=== PATIENT | male | born 1970 | race African-American/Black ===

== ENCOUNTER 2018-04-17 19:43 | Emergency (ER) | payer BC, OTHER ==
[~2018-04-17] VITALS: Ht 170.2 cm; Wt 69.4 kg
[~2018-04-17 19:43] MED LIST: AC500T PO; BACL10TA PO; DCS100C PO; DICL50TA4 PO; ENAL20TA76 PO; ENLP10T PO; KCL20TCR PO; METO50TA7 PO; NF-SKEL800 PO; OXC5T PO; OXYC5CAP10 PO; TRIA1TAB PO; TRIA1TAB42 PO
[2018-04-17] MEDS ORDERED: morphine INJ 10 MG/ML 1ML (SYR OR VIAL) IVP ONE (20:30)
[2018-04-17] MEDS ORDERED: morphine INJ 10 MG/ML 1ML (SYR OR VIAL) ONE (20:32)
[2018-04-17 20:37] LABS: HEMOGLOBIN 14.7 G/DL (13.3-17.7); MEAN PLATELET VOLUME 8.5 FL (7.4-10.4); RED BLOOD COUNT 4.92 10^6/uL (4.35-5.85); RED CELL DISTRIBUTION WIDTH 12.5 % (10.0-14.5); WHITE BLOOD COUNT 9.5 10^3/uL (4.3-11.0)
[2018-04-17] MEDS ORDERED: HYDROmorphone 2 MG/ML VIAL (DILAUDID) IV STA ×2 (20:44→21:53)
[2018-04-17] MEDS ORDERED: ORPHENADRINE 60 MG/2 ML (NORFLEX) AMP IV ONE (20:45)
[2018-04-17 20:51] LABS: INR 1.1 (0.8-1.4); PROTHROMBIN TIME PATIENT 13.7 SEC (12.2-14.7)
[2018-04-17 20:58] LABS: ALANINE AMINOTRANSFERASE 21 U/L (0-55); ALBUMIN 4.5 GM/DL (3.2-4.5); ALKALINE PHOSPHATASE 95 U/L (40-136); BILIRUBIN,TOTAL 0.6 MG/DL (0.1-1.0); BUN/CREATININE RATIO 15; CALCIUM 9.2 MG/DL (8.5-10.1); CARBON DIOXIDE 20 MMOL/L (21-32); CHLORIDE 108 MMOL/L (98-107); CREATININE SERUM 1.12 MG/DL (0.60-1.30); GFR ESTIMATED > 60; GLUCOSE 103 MG/DL (70-105); POTASSIUM 3.8 MMOL/L (3.6-5.0); SODIUM 141 MMOL/L (135-145); TOTAL PROTEIN 7.1 GM/DL (6.4-8.2)
[2018-04-17] MEDS ORDERED: LORazepam INJ 2 MG/ML (ATIVAN) VIAL ONE (20:59)
[2018-04-17] MEDS ORDERED: LORazepam INJ 2 MG/ML (ATIVAN) VIAL IVP ONE ×2 (21:00→22:15)
--- NOTE | 2018-04-17 21:25 | Diagnostic Imaging Report ---
INDICATION: Fell, left arm pain. FINDINGS: There is a fracture through the mid shaft of the left humerus. This is displaced by almost the width of the shaft. On lateral imaging, there is approximately 60 degrees of angulation. IMPRESSION: There is displaced angulated fracture of the mid humeral shaft. Dictated by: Dictated on workstation # [id number]
--- NOTE | 2018-04-17 21:41 | Diagnostic Imaging Report ---
INDICATION: Patient fell, complaining of left arm pain. COMPARISON STUDY: None. The known humeral fracture is not included. FINDINGS: Frontal view of the chest demonstrates heart size to be upper normal with normal vascularity. The lungs are clear. No pleural effusion or pneumothorax is present. No fractures are seen. IMPRESSION: Normal chest. There is a known humeral fracture. Dictated by: Dictated on workstation # [id number]
[2018-04-17] MEDS ORDERED: RX-CYCLOBENZAPRINE 10 MG (FLEXERIL) TAB PPK#3 PO STA (21:53)
[2018-04-17] MEDS ORDERED: RX-OXYCODONE/APAP 5-325 MG #4 TAB PK PO PRN (22:00)
[2018-04-17] MEDS ORDERED: ETOMIDATE IV SOLN 20 MG/10 ML VIAL IV ONE (22:30)
[2018-04-18] MEDS ORDERED: HYDR-3812 PO (02:31)
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
[2018-04-18 03:22] VITALS: BP 133/82
--- NOTE | 2018-04-18 07:01 | Diagnostic Imaging Report ---
INDICATION: Left humerus fracture. IMPRESSION: AP view of the humerus labeled postreduction shows a transverse oblique fracture of the midshaft of left humerus with medial offset of the distal component by half width of the shaft. The distal component also appears to be rotated medially. Dictated by: Dictated on workstation # [id number]
== END 2018-04-18 03:22 | disposition home or self-care (01) ==
LOC: EDUNIT# 19:43 → ER 19:44
DX: S42.332A Displaced oblique fracture of shaft of humerus, left arm, initial encounter for closed fracture (principal); I10 Essential (primary) hypertension; G80.9 Cerebral palsy, unspecified; M62.830 Muscle spasm of back; W01.0XXA Fall on same level from slipping, tripping and stumbling without subsequent striking against object, initial encounter
CPT/HCPCS: 23605; 29105; 36415; 71045; 73060; 80053; 80320; 85027; 85610; 85730; 93041

== ENCOUNTER → 2018-04-30 | Outpatient (CLI) | payer BC ==
[~2018-04-30] MED LIST changes: +HYDR-3812 PO
[2018-04-30 14:47] LABS: BASOPHILS % (AUTO) 1 % (0-10); EOSINOPHILS # (AUTO) 0.2 10^3/uL (0.0-0.3); EOSINOPHILS % (AUTO) 3 % (0-10); HEMATOCRIT 40 % (40-54); LYMPHOCYTES # (AUTO) 1.4 X 10^3 (1.0-4.0); LYMPHOCYTES % (AUTO) 24 % (12-44); MEAN CORPUSCULAR HEMOGLOBIN 31 PG (25-34); MEAN CORPUSCULAR HGB CONC 35 G/DL (32-36); MEAN CORPUSCULAR VOLUME 88 FL (80-99); MEAN PLATELET VOLUME 8.5 FL (7.4-10.4); MONOCYTES # (AUTO) 0.4 X 10^3 (0.0-1.0); MONOCYTES % (AUTO) 8 % (0-12); NEUTROPHILS # (AUTO) 3.7 X 10^3 (1.8-7.8); NEUTROPHILS % (AUTO) 65 % (42-75); PLATELET COUNT 350 10^3/uL (130-400); RED BLOOD COUNT 4.59 10^6/uL (4.35-5.85); RED CELL DISTRIBUTION WIDTH 12.4 % (10.0-14.5); WHITE BLOOD COUNT 5.8 10^3/uL (4.3-11.0)
[2018-04-30 15:17] LABS: ALANINE AMINOTRANSFERASE 29 U/L (0-55); ALBUMIN 4.2 GM/DL (3.2-4.5); ALKALINE PHOSPHATASE 109 U/L (40-136); BILIRUBIN,TOTAL 0.6 MG/DL (0.1-1.0); BUN/CREATININE RATIO 15; CALCIUM 9.3 MG/DL (8.5-10.1); CARBON DIOXIDE 22 MMOL/L (21-32); CHLORIDE 108 MMOL/L (98-107); CREATININE SERUM 1.05 MG/DL (0.60-1.30); GFR ESTIMATED > 60; GLUCOSE 97 MG/DL (70-105); POTASSIUM 3.6 MMOL/L (3.6-5.0); SODIUM 141 MMOL/L (135-145); TOTAL PROTEIN 6.9 GM/DL (6.4-8.2)
== END ==
LOC: LAB 14:30
PROVIDERS: ATTEND Orthopaedic Surgery Orthopaedic Trauma
DX: I10 Essential (primary) hypertension (principal)
CPT/HCPCS: 36415; 80053; 85025

== ENCOUNTER 2018-07-20 17:50 | Emergency (ER) | payer BC ==
[~2018-07-20] VITALS: Ht 170.2 cm; Wt 69.6 kg
[2018-07-20] MEDS ORDERED: TETANUS,DIPTH,PERTUSS P/F (BOOSTRIX) 0.5 ML VIAL IM STA (17:58)
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
[2018-07-20 18:26] LABS: BASOPHILS % (AUTO) 0 % (0-10); EOSINOPHILS # (AUTO) 0.1 10^3/uL (0.0-0.3); EOSINOPHILS % (AUTO) 2 % (0-10); HEMATOCRIT 46 % (40-54); HEMOGLOBIN 15.6 G/DL (13.3-17.7); LYMPHOCYTES # (AUTO) 1.5 X 10^3 (1.0-4.0); LYMPHOCYTES % (AUTO) 20 % (12-44); MEAN CORPUSCULAR HEMOGLOBIN 31 PG (25-34); MEAN CORPUSCULAR HGB CONC 34 G/DL (32-36); MEAN CORPUSCULAR VOLUME 90 FL (80-99); MEAN PLATELET VOLUME 9.1 FL (7.4-10.4); MONOCYTES # (AUTO) 0.7 X 10^3 (0.0-1.0); MONOCYTES % (AUTO) 10 % (0-12); NEUTROPHILS # (AUTO) 4.9 X 10^3 (1.8-7.8); NEUTROPHILS % (AUTO) 68 % (42-75); PLATELET COUNT 331 10^3/uL (130-400); RED CELL DISTRIBUTION WIDTH 13.3 % (10.0-14.5); WHITE BLOOD COUNT 7.2 10^3/uL (4.3-11.0)
--- NOTE | 2018-07-20 18:35 | NUR ---
PT IN CT AT THIS TIME.
[2018-07-20 18:36] LABS: ALANINE AMINOTRANSFERASE 23 U/L (0-55); ALBUMIN 4.4 GM/DL (3.2-4.5); ALKALINE PHOSPHATASE 122 U/L (40-136); BILIRUBIN,TOTAL 0.5 MG/DL (0.1-1.0); BUN/CREATININE RATIO 14; CALCIUM 9.7 MG/DL (8.5-10.1); CARBON DIOXIDE 25 MMOL/L (21-32); CHLORIDE 107 MMOL/L (98-107); CREATININE SERUM 0.96 MG/DL (0.60-1.30); GFR ESTIMATED > 60; GLUCOSE 102 MG/DL (70-105); POTASSIUM 4.1 MMOL/L (3.6-5.0); SODIUM 141 MMOL/L (135-145); TOTAL PROTEIN 7.3 GM/DL (6.4-8.2)
[2018-07-20] MEDS ORDERED: LIDOCAINE/EPI 2% 1:100,00 (XYLOCAINE) 20 ML VIAL ONE (18:54)
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
[2018-07-20 18:58] LABS: PROTHROMBIN TIME PATIENT 13.2 SEC (12.2-14.7)
--- NOTE | 2018-07-20 19:00 | NUR ---
SITE CLEANED W/ BETASEPT ET NS BY DR GRAY. WAGNER X8 PLACED BY DR GRAY. STERI STRIPS TO FIRST FINGER RT HAND W/ BANDAID COVERING BY THIS RN.
[2018-07-20] MEDS ORDERED: SULF1TAB35 PO (19:13)
[2018-07-20 19:29] VITALS: BP 184/102
--- NOTE | 2018-07-20 19:29 | NUR ---
PT DISCHARGED TO HOME W/ INSTR. RX TRANSMITTED TO [facility]. PT TO TAKE MEDS PRESCRIBED, RETURN IN [address] REMOVAL. [address] GRAY AWARE OF PT'S BLOOD PRESSURE UPON DISCHARGE. NO OTHER C/O VOICED
== END 2018-07-20 19:29 | disposition home or self-care (01) ==
LOC: EDUNIT# 17:50 → ER 17:51
DX: S09.90XA Unspecified injury of head, initial encounter (principal); S01.01XA Laceration without foreign body of scalp, initial encounter; S61.210A Laceration without foreign body of right index finger without damage to nail, initial encounter; S16.1XXA Strain of muscle, fascia and tendon at neck level, initial encounter; I10 Essential (primary) hypertension; G80.9 Cerebral palsy, unspecified; R40.2142 Coma scale, eyes open, spontaneous, at arrival to emergency department; R40.2252 Coma scale, best verbal response, oriented, at arrival to emergency department; R40.2362 Coma scale, best motor response, obeys commands, at arrival to emergency department; Z23 Encounter for immunization; Z98.890 Other specified postprocedural states; Z98.1 Arthrodesis status; W00.0XXA Fall on same level due to ice and snow, initial encounter; W26.0XXA Contact with knife, initial encounter
CPT/HCPCS: 36415; 70450; 72125; 80053; 80320; 85025; 85610; 85730; 90715

== ENCOUNTER 2019-11-13 05:36 | Outpatient (RCR) | payer BC ==
[~2019-11-13] VITALS: Ht 177 cm; Wt 75.0 kg
[~2019-11-13 05:36] MED LIST changes: +ACHD5005 PO; +BACL20TA PO; -HYDR-3812 PO; +LISI10TA2 PO; +SULF1TAB35 PO
== END 2019-11-13 15:02 | disposition home or self-care (01) ==
LOC: PREOP 05:36
PROVIDERS: ATTEND Surgery
DX: Z01.818 Encounter for other preprocedural examination (principal); Z20.828 Contact with and (suspected) exposure to other viral communicable diseases
CPT/HCPCS: 87635

== ENCOUNTER 2019-11-17 08:03 | Day surgery (SDC) | payer BC ==
[~2019-11-17] VITALS: Ht 177 cm; Wt 75.0 kg
[2019-11-17] MEDS ORDERED: LACTATED RINGERS 1,000 ML IV ONE (08:07)
[2019-11-17] MEDS ORDERED: LACTATED RINGERS 1,000 ML IV STA (08:10)
[2019-11-17 08:17] VITALS: BP 147/99
--- NOTE | 2019-11-17 08:19 | Progress Note-Pre Operative ---
Pre-Operative Progress Note H&P Reviewed The H&P was reviewed, patient examined and no changes noted. Time Seen by Provider: 08:12 Date H&P Reviewed: Nov 17, 2019 Time H&P Reviewed: 08:12 Pre-Operative Diagnosis: Screening CONNIE MAGAÑA DO Nov 17, 2019 08:19
[2019-11-17] MEDS ORDERED: MIDAZOLAM 2 MG/2 ML (VERSED) VIAL ONE (08:50)
[2019-11-17] MEDS ORDERED: PROPOFOL INJECTION 50 ML IV ONE (08:50)
[2019-11-17 09:15] VITALS: BP 103/59
[2019-11-17 09:20] VITALS: BP 100/61
--- NOTE | 2019-11-17 09:22 | Progress Note-Post Operative ---
Post-Operative Progess Note Surgeon (s)/Police Captain Senior (s) Surgeon CONNIE MAGAÑA DO Police Captain Senior: none Pre-Operative Diagnosis Screening Post-Operative Diagnosis Polyp hemorrhoids Procedure & Operative Findings Date of Procedure 11/17/19 Procedure Performed/Findings colon with snare Anesthesia Type IV sedation by [employer] Estimated Blood Loss Estimated blood loss (mL): scant Specimens/Packing Specimens Removed descending colon polyp CONNIE MAGAÑA DO Nov 17, 2019 09:21
--- NOTE | 2019-11-17 09:23 | Endoscopy Discharge Instruct ---
Endo Procedure/Findings Findings 1.: Polyp 2.: Internal Hemorrhoids Discharge Instructions - Activity: You might feel a little sleepy until tomorrow. This is due to the medicine you received to relax you. Until tomorrow, you should: NOT drive a car, operate machinery or power tools. NOT drink any alcoholic beverages. NOT make any important decisions or sign importortant papers. Do not return to work until tomorrow, unless otherwise instructed. Resume previous activities tomorrow. Diet: Start by taking liquids. If you tolerate liquids, advance to solid food. make an appointment for 2 weeks 1.: Colonscopy in 5 years Notify Physician - If you experience excessive bleeding, unusual abdominal pain, fever, or chest pain, contact your doctor immediately. CONNIE MAGAÑA DO Nov 17, 2019 09:23
[2019-11-17 09:25] VITALS: BP 108/71
[2019-11-17 09:55] VITALS: BP 126/104
[2019-11-17 10:10] VITALS: BP 126/104
--- NOTE | 2019-11-17 11:10 | Anesthesia-General Post-Op ---
MAC Patient Condition Mental Status/LOC: Same as Preop Cardiovascular: Satisfactory Nausea/Vomiting: Absent Respiratory: Satisfactory Pain: Controlled Complications: Absent Post Op Complications Complications None Follow Up Care/Instructions Patient Instructions None needed. Anesthesiology Discharge Order Discharge Order Patient is doing well, no complaints, stable vital signs, no apparent adverse anesthesia problems. No complications reported per nursing. SRIDHAR SNIDER CRNA Nov 17, 2019 11:10
--- NOTE | 2019-11-18 01:14 | OPERATIVE REPORT ---
DATE OF SERVICE: 11/17/2019 PREOPERATIVE DIAGNOSIS: Screening colonoscopy. POSTOPERATIVE DIAGNOSES: Colon polyp, internal hemorrhoids. PROCEDURE: Colonoscopy with snare polypectomy. SURGEON: Filiberto Summers DO STRATEGIC PLANNING ANALYST: None. ANESTHESIA: IV sedation by [employer]. SPECIMEN: Polyp from the descending colon. BLOOD LOSS: Scant. FLUIDS: Per anesthesia. POSTOPERATIVE CONDITION: Stable. INDICATION FOR PROCEDURE: The patient is a 49-year-old male who needed a screening colonoscopy. FINDINGS: The patient had a polyp in the descending colon removed and he had some small internal hemorrhoids. PROCEDURE NOTE: After informed consent was obtained, the patient was brought to the endoscopy suite, placed in bed in the left lateral decubitus position. He was administered IV sedation by the [employer] P[employer] who then monitored his vitals the entire time, heart rate, blood pressure and pulse ox and the scope was inserted. On the way in, noted a polyp in the descending colon, took a picture of this and then the snare polypectomy and continued all the way up to the cecum, took a picture of appendiceal orifice, noted the ileocecal valve and then slowly withdrew the scope insufflating to look circumferentially at the mojica looking the cecum, up the ascending colon to the hepatic flexure, then down the transverse colon, the splenic flexure, into the descending colon down into the sigmoid and finally into the rectum, retroflexed in rectal vault, saw some minimal internal hemorrhoids, took a picture of these and then removed the scope. The patient tolerated the procedure and recovered in endoscopy suite. Job ID: [id number] DocumentID: [id number] Dictated Date: 11/17/2019 16:26:40 Director Special Education Date: 11/18/2019 01:13:28 Dictated By: FILIBERTO SUMMERS DO
== END 2019-11-17 10:10 | disposition home or self-care (01) ==
LOC: ENDO 08:03
PROVIDERS: ATTEND Surgery
DX: Z12.11 Encounter for screening for malignant neoplasm of colon (principal); D12.4 Benign neoplasm of descending colon; K64.8 Other hemorrhoids; I10 Essential (primary) hypertension; G89.29 Other chronic pain; M54.9 Dorsalgia, unspecified; G80.9 Cerebral palsy, unspecified; Z79.899 Other long term (current) drug therapy; Z79.891 Long term (current) use of opiate analgesic
CPT/HCPCS: 88305